=== PATIENT | female | born 1990 | race Asian ===

== ENCOUNTER 2016-11-17 17:51 | Inpatient (IN) | payer OTHER ==
[~2016-11-17] VITALS: Ht 160 cm; Wt 88.5 kg
[2016-11-17 18:46] LABS: ABSOLUTE BASOPHIL COUNT 0 /CUMM (0.0-0.2); ABSOLUTE EOSINOPHIL COUNT 0.1 /CUMM (0.0-0.7); ABSOLUTE GRANULOCYTE CT 9.7 /CUMM (1.4-6.5); ABSOLUTE MONOCYTE COUNT 0.7 /CUMM (0.10-0.60); BASOPHIL % 0.2 % (0.0-2.0); EOSINOPHIL % 0.7 % (0-5); GRANULOCYTE % 77.7 % (42.2-75.2); HEMATOCRIT 28.6 % (37-47); MEAN CORPUSCULAR HGB 23.9 PG (27.0-31.0); MEAN CORPUSCULAR HGB CONC 32.4 G/DL (33.0-37.0); MEAN CORPUSCULAR VOLUME 73.8 FL (81.0-99.0); MEAN PLATELET VOLUME 9.2 FL (7.4-10.4); PLATELET COUNT 241 /CUMM (130-400); RBC DISTRIBUTION WIDTH 16.3 % (11.5-14.5); RED BLOOD CELL CT 3.88 /CUMM (4.20-5.40); WHITE BLOOD CELL COUNT 12.5 /CUMM (4.8-10.8)
--- NOTE | 2016-11-18 03:50 | PN- OBGYN ---
See Addendum Surgical Brief Attending Note Brief Attending Note: 26 year old who presented at 38+6 for PIH eval. She was referred from office by Dr. Samuel for h/o XIAO this am. BPs elevated in office today 120/90 and 134/100. In office was 2cm.Pt relays h/o ??GHTN in previous and had a c/section after pushing for 1 hour for ?BP related issues and/or NRFHTs. Pt had completely normal BPs during her evaluation; however, non cath UTPCR was 0.6. A catheterized sample was performed and was 0.5. Pt had occ contractions. I kept her for 23 hour observation. During that period of time , she began fady q 3 minutes and desires . consent is signed. Last us @ 37.6, cephalic, LUPILLO 12.9, EFW 7lb4oz 56.8%. I again reviewed risk of including risk of uterine rupture, need for emerent c/section, possible risk of snf or permanent injury to fetus or . She stated verbal understanding and desires to proceed.
--- NOTE | 2016-11-18 07:38 | Operative Report ---
Operative/Inv Procedure Report Surgery Date: 11/18/16 Name of Procedure: Repeat low transverse section Pre-Operative Diagnosis: Term , active labor, History of prior delivery desires trial of labor and attempt at vaginal after , single elevated blood pressure with elevated urine total protein creatinine ratio of 0.5 on a catheterized specimen Post-Operative Diagnosis: Same as above and failed vaginal after delivery secondary to nonreassuring heart tones Estimated Blood Loss: 600ml Surgeon/Concrete Craftsman: Luz Elena ETIENNE DO surgeon began case and completed reapproximation of peritoneum Concrete Craftsman ANDRÉS berrios Dr. resumed case from reapproximation of peritoneum Anesthesia: block, epidural Drains: Valdes catheter Complications: None Operative Indication: 26 year old who presented at 38+6 for PIH eval. She was referred from office by Dr. Samuel for h/o XIAO this am. BPs elevated in office today 120/90 and 134/100. In office was 2cm.Pt relayed h/o ??GHTN in previous and had a c/section after pushing for 1 hour for ?BP related issues and/or NRFHTs. Pt [facility]; however, non cath UTPCR was 0.6. A catheterized sample was performed and was 0.5. Pt had occ contractions. I kept her for 23 hour observation. During that period of time , she began fady q 3 minutes and desired . She is examined by the nurse was found to be 47 m. consent is signed. Last us @ 37.6, cephalic, LUPILLO 12.9, EFW 7lb4oz 56.8%.I reviewed risk of including risk of uterine rupture, need for emerent c/section, possible risk of [facility] or permanent injury to fetus or . She stated verbal understanding and desired to proceed with trial of labor. She labored without incident didn't until she was fully dilated. At that point time she spontaneously ruptured and was noted to have clear fluid. Within 5 minutes she had a deep deceleration, severe variable with a fidel of 60 bpm 2 minutes. She was examined and found to be fully dilated and 0 station. She had a second episode within 6 minutes. I attempted to push with her to see vaginal delivery could be expedited. Maternal effort was noted to be poor and station remained 0. I attempted observation however she was noted to have intermittent deep variables. This was concerning for possible uterine rupture. I Determined that continued trial of labor would be unsuccessful as the station was still high. I ordered an urgent delivery. Operative/Procedure Note Note: The patient was taken to the operating room where epidural anesthesia was bolused. The patient was prepped with Betadine. A Pfannenstiel skin incision was made over her pre-existing skin scar. Incision was carried down to the fascia with the scalpel. The fascia was incised with a scalpel and extended bilaterally. She had adhesions from her rectus muscles to the underside of her fascia. The superior aspect of the fascial incision was tented up with Kingsland clamps and rectus muscles dissected off with sharp dissection with Kelly scissors. Attention was then turned to the inferior portion of the fascial incision which was similarly tented up with Ada clamps and rectus muscles dissected off with sharp dissection. Rectus muscles were in midline peritoneum was then identified and entered bluntly. Peritoneum was then extended with good visualization of the bladder. The bladder blade was inserted and the vesicouterine peritoneum was identified and entered sharply with Metzenbaum scissors and the incision was then extended bilaterally with sharp dissection. Bladder flap was created and bladder blade was inserted. The lower uterine segment was noted to be thin however there was no rupture noted. The lower uterine segment was then incised in a transverse fashion with the scalpel. Membranes were noted and again ruptured and clear fluid was noted. The infant was asynclitic and floating in the pelvis. The head was delivered with gentle traction. The infant was delivered without difficulty and a good cry was noted. The 's cord was clamped and cut and the was handed to the waiting nurses. The placenta was then delivered with gentle traction on the cord. The uterus was exteriorized and noted to be within normal limits. She normal uterus , normal-appearing bilateral ovaries normal-appearing fallopian tubes. The uterus was cleared of all clots and debris. 10 units of Pitocin was administered intrauterine. Uterus was re-proximal with 0 Vicryl in a running locking fashion. A second inverting suture was placed. Good hemostasis noted. Posteriorly the uterus was inspected and noted to be within normal limits and irrigation performed. The uterus again was noted to be hemostatic and then replaced back into the abdomen and gutters were cleared of all clots and debris. The incision was noted to be hemostatic. An omental adhesion was noted to the superior most aspect of the peritoneal incision this was clamped 2 with Breann clamps cut and suture ligated 2. Peritoneum and rectus muscles were reapproximated 2-0 [address]. At this time Dr. Rodriguez took over the case. Please refer to her dictation. Findings: 8'1" male infant with apgars of 9,9,9 delivered at 0655 on 11/18/16. Discharge Disposition: cbc
--- NOTE | 2016-11-18 18:01 | Operative Report ---
Operative/Inv Procedure Report Surgery Date: 11/18/16 Name of Procedure: Repeat Low cervical Cesarian Section Pre-Operative Diagnosis: Term , active labor, History of prior delivery desires trial of labor and attempt at vaginal after , single elevated blood pressure with elevated urine total protein creatinine ratio of 0.5 on a catheterized specimen Post-Operative Diagnosis: Same as above and failed vaginal after delivery secondary to nonreassuring heart tones Estimated Blood Loss: 600 ml Surgeon/Machine Hose Cutter: JOLANTA ETIENNE DO primary surgeon began case and completed reapproximation of peritoneum Machine Hose Cutter ANDRÉS berrios Dr. resumed case from reapproximation of peritoneum Anesthesia: Epidural Monitors: Pulse oximeter, blood pressure cuff, EKG electrodes IV Fluids: 1300 crystalloid Implants: None Urine Output: 220 mL Drains: Valdes Specimens: Placenta Microbiology: None Complications: None Condition: Good Operative Indication: PER DR ETIENNE'S NOTE: 26 year old who presented at 38+6 for PIH eval. She was referred from office by Dr. Samuel for h/o XIAO this am. BPs elevated in office today 120/90 and 134/100. In office was 2cm.Pt relayed h/o ??GHTN in previous and had a c/section after pushing for 1 hour for ?BP related issues and/or NRFHTs. Pt [facility] completely [facility]; however, non cath UTPCR was 0.6. A catheterized sample was performed and was 0.5. Pt had occ contractions. I kept her for 23 hour observation. During that period of time , she began fady q 3 minutes and desired . She is examined by the nurse was found to be 47 m. consent is signed. Last us @ 37.6, cephalic, LUPILLO 12.9, EFW 7lb4oz 56.8%.I reviewed risk of including risk of uterine rupture, need for emerent c/section, possible risk of group home or permanent injury to fetus or . She stated verbal understanding and desired to proceed with trial of labor. She labored without incident didn't until she was fully dilated. At that point time she spontaneously ruptured and was noted to have clear fluid. Within 5 minutes she had a deep deceleration, severe variable with a fidel of 60 bpm 2 minutes. She was examined and found to be fully dilated and 0 station. She had a second episode within 6 minutes. I attempted to push with her to see vaginal delivery could be expedited. Maternal effort was noted to be poor and station remained 0. I attempted observation however she was noted to have intermittent deep variables. This was concerning for possible uterine rupture. I Determined that continued trial of labor would be unsuccessful as the station was still high. I ordered an urgent delivery. Operative/Procedure Note Note: Due to shift change in the coverage for labor and delivery and our office staffing, I assume the main surgical roll after closure of the peritoneum. My speech language pathology assistant remained Tess by the PA. At this time the muscle layer was carefully inspected and found to have good hemostasis. A horizontal mattress suture of 2-0 Vicryl was used to reapproximate the lower aspect of the rectus muscle in the midline. Fascia was then closed in 2 separate segments of running intermittently locking layer. Subcutaneous tissue was irrigated and the fluid was aspirated. Small bleeders were managed in this layer with unipolar cautery. Subcutaneous tissue was then closed with a running 20 plain gut. Skin edges reapproximated with Monocryl on a Sheldon needle. There was good hemostasis at all levels of closure. At completion of this procedure sponge needle and instrument counts were correct 4. Pressure dressing was applied to the abdominal wall. Bimanual exam showed no significant blood or clot in the upper vault of the vagina but there appeared to be some bogginess to the low segment of the uterine wall. Patient was given 1 dose of subcutaneous Methergine 1. ( Of note her blood pressure remained normal during the OR case) Patient was then transferred to the recovery room in good condition. Findings: Please refer to Dr. Etienne's note, due to the fact that I only participated in the surgical case after the peritoneum had been closed. Discharge Disposition: CC: JOLANTA ETIENNE DO
--- NOTE | 2016-11-19 08:34 | PN- Post Delivery/GYN ---
Subjective Subjective: feeling ok oob to chair Review of Systems Constitutional: Denies: chills, fever. EENTM: Denies: blurred vision, double vision, visual changes. Cardiovascular: Denies: chest pain. Respiratory: Reports: cough. Denies: orthopnea, short of breath, sputum production. Gastrointestinal: Denies: nausea, vomiting. Neurological/Psychological: Denies: anxiety, depressed. Objective Last 24 Hrs of Vital Signs/I&O vss Physical Exam General Appearance Alert, Oriented X3, Cooperative, No Acute Distress Cardiovascular Regular Rate Lungs Clear to Auscultation Abdomen Soft, incision clean and dry Neurological Normal Speech, Normal Tone Pelvic (FEMALE) Appearance Normal (lochia serosanganous) Current Medications: Current Medications Sig/Rae Start time Last Medication Dose Route Stop Time Status Admin Acetaminophen 1,000 MG Q6P PRN 11/18 0830 DC IV 11/19 0800 Acetaminophen 650 MG Q4P PRN 11/18 0815 AC PO Butorphanol Tartrate 1 MG Q4P PRN 11/18 0300 DC IM Butorphanol Tartrate 2 MG Q4P PRN 11/18 0300 DC IV Diphenhydramine HCl 25 MG Q6P PRN 11/18 1000 AC IV Docusate Sodium 100 MG AT BEDTIME PRN 11/18 0815 AC PO Hydromorphone HCl 50 MG Q24H PRN 11/18 0845 AC Sodium Chloride 45 ML IV Hydroxyzine HCl 100 MG AT BEDTIME NEED.. 11/19 0000 AC PO Ibuprofen 800 MG Q6P PRN 11/18 0815 AC PO Ketorolac 30 MG Q6H 11/18 0700 DC 11/19 Tromethamine IV 11/19 0101 0320 Lactated Ringer's 1,000 ML Q6H 11/18 0815 AC 11/19 IV 0547 Lactated Ringer's 1,000 ML Q8H 11/18 0300 DC 11/18 IV 0250 Magnesium Hydroxide 30 ML DAILY NEEDED PRN 11/18 0815 AC PO Methylergonovine 0.2 MG .[STAT] 11/18 0815 DC 11/18 Maleate IM 0700 Metoclopramide HCl 10 MG Q6P PRN 11/18 1000 AC IV Naloxone HCl 0.2 MG DAILY NEEDED PRN 11/18 1000 AC IV Oxycodone/ 1 TAB Q4P PRN 11/18 0815 AC Acetaminophen PO Oxycodone/ 2 TAB Q4P PRN 11/18 0815 AC Acetaminophen PO Oxytocin 20 UNITS Q8H 11/18 0815 DC 11/18 Lactated Ringer's 1,000 ML IV 11/18 1614 0856 Last 24 Hrs of Labs/Chavez: Laboratory Tests 11/19/16 0825: CBC w Diff Pending, WBC Pending, RBC Pending, Hgb Pending, Hct Pending, MCV Pending, MCH Pending, RDW Pending, Plt Count Pending, MPV Pending, PUBS MCHC Pending Assessment/Plan Assessment/Plan POD #1 c/o cough which she has had for several days before surgery will Rx. Cecelia Problem List: 1. Attending MD Review Statement Attending Statement Attending MD Statement: examined this patient, discussed with family, discussed with nursing
[2016-11-19 11:29] LABS: ABSOLUTE BASOPHIL COUNT 0.1 /CUMM (0.0-0.2); ABSOLUTE EOSINOPHIL COUNT 0.1 /CUMM (0.0-0.7); ABSOLUTE LYMPH COUNT 2.2 /CUMM (1.2-3.4); ABSOLUTE MONOCYTE COUNT 0.8 /CUMM (0.10-0.60); BASOPHIL % 0.4 % (0.0-2.0); EOSINOPHIL % 0.9 % (0-5); GRANULOCYTE % 77.8 % (42.2-75.2); HEMATOCRIT 26.6 % (37-47); MEAN CORPUSCULAR HGB 23.6 PG (27.0-31.0); MEAN CORPUSCULAR HGB CONC 31.7 G/DL (33.0-37.0); MEAN CORPUSCULAR VOLUME 74.5 FL (81.0-99.0); MEAN PLATELET VOLUME 9.3 FL (7.4-10.4); PLATELET COUNT 198 /CUMM (130-400); RBC DISTRIBUTION WIDTH 16.9 % (11.5-14.5); RED BLOOD CELL CT 3.57 /CUMM (4.20-5.40); WHITE BLOOD CELL COUNT 14.2 /CUMM (4.8-10.8)
[2016-11-20] MEDS ORDERED: FERROUS SULFAT324 MG PO (00:49)
[2016-11-20] MEDS ORDERED: PRENATAL TABLE1 EAC2 PO (00:49)
[2016-11-20] MEDS ORDERED: PERCOCET 5-3251 EACH PO (00:49)
[2016-11-20] MEDS ORDERED: IBUPROFEN800 M1 PO (00:49)
--- NOTE | 2016-11-20 11:17 | PN- Post Delivery/GYN ---
Subjective Subjective: doing ok - pain meds hold off discomfort Review of Systems: no Cardiac pulmonary GI complaints Objective Last 24 Hrs of Vital Signs/I&O Afebrile VSS Physical Exam General Appearance Alert, Oriented X3, Cooperative, No Acute Distress Skin No Significant Lesion Cardiovascular Regular Rate Lungs Normal Air Movement Abdomen Normal Bowel Sounds, Soft, No Tenderness, No Hepatospenomegaly, Fundus firm midline 2 FB below umbilicus nontender Incision clean dry intact Neurological Normal Gait, Normal Speech Extremities No Tenderness/Swelling Reproductive (FEMALE) Normal female genitalia, avge lochia Assessment/Plan Assessment/Plan Stable- POD #2 flat nipples, tongue tied baby - breast feeding issues- delay circ for
--- NOTE | 2016-11-21 09:15 | PN- OBGYN ---
Surgical Brief Attending Note Brief Attending Note: PPD#3 pt is ambulating, no complaints, tolerate diet, void without difficulties, flatus(+) PE: VSS CV RRR lungs CTA B/L Abdomen: soft, nontender, uterus firm, fundus below umbilicus, incision D/C/I, lochia mild Ext: DCT (-) A/P: 26yo, s/p RLTCS, POD #3 1. encourage ambulation and . 2. pain management as needed 3. pt request circumcision for the baby, R/B/A of circumcision d/w pt, all questions ans wered, informed consent obtained. clay burner cleared baby for circumcision 4. will d/c pt home, f/u in office in 2 wks and 6 wks
--- NOTE | 2016-12-08 14:09 | Discharge Summary ---
Visit Information Visit Dates Admission Date: 11/18/16 Discharge Date: 11/21/16 Hospital Course Course Attending Physician: JOLANTA ETIENNE DO Primary Care Physician: PATIENT HAS NO PRIMARY CARE DR Hospital Course: 26 year old who presented at 38+6 for PIH eval. She was referred from office by Dr. Samuel for h/o XIAO this am. BPs elevated in office today 120/90 and 134/100. In office was 2cm.Pt relayed h/o ??GHTN in previous and had a c/section after pushing for 1 hour for ?BP related issues and/or NRFHTs. Pt had completely normal BPs during her evaluation at [facility]; however, non cath UTPCR was 0.6. A catheterized sample was performed and was 0.5. Pt had occ contractions. I kept her for 23 hour observation. During that period of time , she began fady q 3 minutes and desired . She is examined by the nurse was found to be 47 m. consent is signed. Last us @ 37.6, cephalic, LUPILLO 12.9, EFW 7lb4oz 56.8%.I reviewed risk of including risk of uterine rupture, need for emerent c/section, possible risk of snf or permanent injury to fetus or . She stated verbal understanding and desired to proceed with trial of labor. She labored without incident until she was fully dilated. At that point time she spontaneously ruptured and was noted to have clear fluid. Within 5 minutes she had a deep deceleration, severe variable with a fidel of 60 bpm 2 minutes. She was examined and found to be fully dilated and 0 station. She had a second episode within 6 minutes. I attempted to push with her to see vaginal delivery could be expedited. Maternal effort was noted to be poor and station remained 0. I attempted observation however she was noted to have intermittent deep variables. This was concerning for possible uterine rupture. I Determined that continued trial of labor would be unsuccessful as the station was still high. I ordered an urgent section. Surgery was uncomplicated. Her postoperative course was uncomplicated. she was discarged #3 in good condition. She was ambulating, voiding, tolerating pain and by mouth. She was nursing. Lochia was within normal limits. Complications: None Allergies: Coded Allergies: No Known Allergies (11/18/16) Significant Procedures: Repeat low transverse section for Failed trial of labor after and nonreassuring heart tones. Disposition Summary Disposition Principal Diagnosis: Term , active labor, history of prior delivery Additional Diagnosis: Failed trial of labor, nonreassuring heart tones Discharge Disposition: home or self care Discharge Instructions General Discharge Information Code Status: Full Code Patient's Diet: Regular Patient's Activity: Pelvic rest and no heavy lifting for 6 weeks Follow-Up Instructions/Appts: Call the [facility] for follow-up appointment in 2 weeks, call for severe pain, fever over 101F, heavy vaginal bleeding Medications at Discharge Discharge Medications: Start taking the following new medications: Ibuprofen (Ibuprofen) 800 MG TABLET 800 Milligram ORAL EVERY SIX HOURS NEEDED as needed for UTERINE CRAMPING Qty = 60 Refills = 6 Comments: Last Taken:11/21/16 Time:1000 Oxycodone HCl/Acetaminophen (Percocet 5-325 MG Tablet) 5 MG-325 MG TABLET 1-2 Tablet ORAL EVERY 4 HOURS NEEDED as needed for PAIN SCALE 4-10 Qty = 30 No Refills Comments: Last Taken:11/21/16 Time:1000 Vit No.130/Iron/FA ( Tablet) 27 MG IRON-800 MCG TABLET 1 Tablet ORAL DAILY Qty = 30 Refills = 6 Ferrous Sulfate (Ferrous Sulfate) 324 MG (65 MG IRON) TABLET.DR 1 Tablet ORAL DAILY Qty = 60 Refills = 2 Copies To: JOLANTA ETIENNE DO
== END 2016-11-21 17:30 | DRG 766 ==
LOC: CBCO 17:51 → GNO 22:15
PROVIDERS: Obstetrics & Gynecology; ADMIT Obstetrics & Gynecology
PROC: 10D00Z1 Extraction of Products of Conception, Low, Open Approach (ICD-10-PCS; principal; 2016-11-18)
DX: O76 Abnormality in fetal heart rate and rhythm complicating labor and delivery (principal); O34.211 Maternal care for low transverse scar from previous cesarean delivery; N85.8 Other specified noninflammatory disorders of uterus; Z37.0 Single live birth; Z3A.38 38 weeks gestation of pregnancy
CPT/HCPCS: GNOS; 36415; 81001; 82570; 88307; G0378; G0463; J0690; J1170; J1885; J2210; J3105; J7120